=== PATIENT | female | born 1960 | race Caucasian/White ===

== ENCOUNTER 2020-03-11 07:27 | Day surgery (SDC) | payer BC ==
[~2020-03-11] VITALS: Ht 180.3 cm; Wt 132.4 kg
[~2020-03-11 07:27] MED LIST: ALBUTEROL2 MG OR; ALLOPURINOL100 MG OR; ALLOPURINOL100 MG PO; AMLODIPINE5 MG PO; ASA OR; ASPIRIN LOW DOS81 M2 PO; ASPIRIN325 MG PO; CATAPRES0.1 MG PO; CATAPRES0.3 MG OR; CIPRO500 MG OR; CIPROFLOXACN500 MG PO; CLONIDINE0.1 MG PO; CLONIDINE0.2 MG OR; CLONIDINE0.2 MG PO; DOXYCYCL HYC100 MG PO; FLEXERIL PO; FLONASE AL50 MCG/ACT; GENTAK0.3 % OS; HYDROCHLOROT25 MG PO; HYZAAR1 TA1 OR; IMDUR60 MG PO; ISOSORB MONO30 MG PO; KLOR-CON M2020 MEQ PO; LABETALOL100 MG OR; LABETALOL200 MG PO; LASIX20 MG OR; LEVEMIR SC; LEVEMIR1000 UNITS; LEVOTHROID125 MCG PO; LEVOTHYROXIN50 MCG PO; LORTAB 10 PO; LOSARTAN POT100 MG PO; LOSARTAN POT50 MG PO; LOSARTAN/HCT1 TA2 PO; MEDDOSEPAK OR; METFORMIN500 M2 PO; MICARDIS H80 MG/25 M OR; NASONEX50 MCG/AC; NITROGLYCER0.4 MG SL; NITROSTAT0.4 MG PO; NOVOLOG FLEXPEN SC; POT CHLORIDE20 ME3 PO; POTASSIUM25 MEQ OR; PRILOSEC40 MG PO; SIMVASTATIN40 MG PO; TORADOL OR; TRAMADOL HCL50 MG PO; TRESIBA FL200 UNIT/M SC; ULTRAM50 MG OR; VICTOZA18 MG/3 ML SC; VITAMIN C500 MG PO; VITAMIN D5000 UNI1 PO
[2020-03-11 09:50] VITALS: BP 132/64
== END 2020-03-11 10:20 | disposition home or self-care (01) | DRG 395 ==
LOC: ENDO 07:27 → ORM 07:30 → ENDO 10:20
PROVIDERS: ATTEND Surgery
PROC: 0DBM8ZX Excision of Descending Colon, Via Natural or Artificial Opening Endoscopic, Diagnostic (ICD-10-PCS; principal; 2020-03-11)
PROC: 0DBH8ZX Excision of Cecum, Via Natural or Artificial Opening Endoscopic, Diagnostic (ICD-10-PCS; 2020-03-11)
PROC: 3E0H8GC Introduction of Other Therapeutic Substance into Lower GI, Via Natural or Artificial Opening Endoscopic (ICD-10-PCS; 2020-03-11)
DX: D12.0 Benign neoplasm of cecum (principal); D12.4 Benign neoplasm of descending colon; K57.30 Diverticulosis of large intestine without perforation or abscess without bleeding; K64.8 Other hemorrhoids; I10 Essential (primary) hypertension; E11.9 Type 2 diabetes mellitus without complications; Z11.59 Encounter for screening for other viral diseases; Z95.1 Presence of aortocoronary bypass graft; Z79.4 Long term (current) use of insulin

== ENCOUNTER 2020-07-22 16:15 | Inpatient (IN) | payer BC ==
[~2020-07-22] VITALS: Ht 180.3 cm; Wt 131.0 kg
--- NOTE | 2020-07-22 16:15 | NUR ---
PT TO ROOM VIA WC FOR TRIAGE
[2020-07-22 17:00] LABS: HEMOGLOBIN 11.8 g/dl (12.0-16.0); IMMATURE GRANULOCYTES 0.3 % (0.0-5.0); MEAN CELL VOLUME 82.5 fL CALC (80.0-100.0); MEAN CORPUSCULAR HGB 27.8 pG CALC (26.0-32.0); MEAN CORPUSCULAR HGB CONC 33.7 g/dL CAL (32.0-36.0); NEUT# 2.5 thou/uL (2.00-7.15); RED BLOOD COUNT 4.24 mill/uL (4.20-5.60); RED CELL DISTRI WIDTH 14.9 % (11.5-15.5)
[2020-07-22 17:18] LABS: ALBUMIN 4.3 g/dL (3.2-5.0); ALKALINE PHOSPHATASE 77 u/l (38-126); ANION GAP 14 (6-22 (CALC)); BUN 21 mg/dL (8-23); BUN/CREATININE RATIO 21 (12-20 (CALC)); C-REACTIVE PROTEIN 6.7 mg/dL (0-0.9); CARBON DIOXIDE 27 mmol/l (22-30); CHLORIDE 100 mmol/l (95-108); GFR 56 ML/MIN (>=60 (CALC)); GFR FOR AFR.AMER. > 60 ML/MIN (>=60 (CALC)); POTASSIUM 3.3 mmol/l (3.5-5.1); SODIUM 137 mmol/l (137-146); TOTAL PROTEIN 6.8 g/dL (6.3-8.2)
[2020-07-22 17:19] LABS: SGOT/AST 48 u/l (9-36)
--- NOTE | 2020-07-22 17:56 | NUR ---
PT ASSISTED TO BEDSIDE COMMODE WITHOUT DISTRESS. PT IS WITHOUT ANY COMPLAINTS
--- NOTE | 2020-07-22 18:40 | NUR ---
PT ADMITS TO NOT TAKING HER BP MEDICATION THIS AFTERNOON. LABETOL IV GIVEN
--- NOTE | 2020-07-22 19:00 | NUR ---
RECEIVED REPORT FROM TALIA MIJARES. PT IS IN ER12.
[2020-07-22 19:21] VITALS: BP 180/75
[2020-07-22 20:21] VITALS: BP 175/76
--- NOTE | 2020-07-22 21:00 | NUR ---
CALLED YUDI TO HAVE MEDICATIONS VERIFIED. PT UP TO BSC BY HERSELF. NO SOB NOTED.
[2020-07-22 21:21] VITALS: BP 173/76
--- NOTE | 2020-07-22 23:00 | NUR ---
PT HAD BM.. NO SOB NOTED. B/P 173/76 SATS STABLE 95%
[2020-07-23] VITALS (9 sets, daily range): BP systolic 156–189; BP diastolic 66–77
--- NOTE | 2020-07-23 | NUR ---
PT SWITCHED TO HOSPITAL BED AND STATED SHE FELT WONDERFUL SINCE MOVED TO BED. SHOWED HER HOW TO USE BED CONTROLS. BP 172/77 TEMP 97.5 SAT 97 AT THIS TIME. NO SOB NOTED. LIGHTS OUT PER REQUEST. CALL SALDANA IN REACH. CELL PHONE PLUGGED INTO OPPOSITE SIDE OF ROOM FROM COMMODE SO PT WOULD NOT TRIP ON CORD.
--- NOTE | 2020-07-23 02:09 | NUR ---
PT RESTING QUIETLY. SAT 95%
--- NOTE | 2020-07-23 05:30 | NUR ---
PT WAS SNORING LOUDLY UPON ENTERING ROOM. WOKE EASILY. MORNING LABS DRAWN AND MEDICATED WITH SYNTHROID. APOLOGIZED FOR WAKING PT AND SHE STATED NOT TO WORRY SHE WILL FALL BACK TO SLEEP EASILY.
[2020-07-23 05:50] LABS: HEMATOCRIT 32.8 % (37.0-47.0); HEMOGLOBIN 11.2 g/dl (12.0-16.0); IMMATURE GRANULOCYTES 0.4 % (0.0-5.0); MEAN CELL VOLUME 82.2 fL CALC (80.0-100.0); MEAN CORPUSCULAR HGB 28.1 pG CALC (26.0-32.0); MEAN CORPUSCULAR HGB CONC 34.1 g/dL CAL (32.0-36.0); NEUT# 1.85 thou/uL (2.00-7.15); RED BLOOD COUNT 3.99 mill/uL (4.20-5.60); RED CELL DISTRI WIDTH 14.3 % (11.5-15.5)
[2020-07-23 06:10] LABS: ALBUMIN 3.9 g/dL (3.2-5.0); ALKALINE PHOSPHATASE 71 u/l (38-126); ANION GAP 12 (6-22 (CALC)); BILIRUBIN, TOTAL 0.7 mg/dL (0.0-1.4); BUN 22 mg/dL (8-23); BUN/CREATININE RATIO 31 (12-20 (CALC)); C-REACTIVE PROTEIN 6.5 mg/dL (0-0.9); CARBON DIOXIDE 28 mmol/l (22-30); CHLORIDE 101 mmol/l (95-108); CREATININE 0.7 mg/dL (0.5-1.0); GFR > 60 ML/MIN (>=60 (CALC)); GFR FOR AFR.AMER. > 60 ML/MIN (>=60 (CALC)); POTASSIUM 3.5 mmol/l (3.5-5.1); SGOT/AST 40 u/l (9-36); SODIUM 137 mmol/l (137-146); TOTAL PROTEIN 6.2 g/dL (6.3-8.2)
--- NOTE | 2020-07-23 07:00 | NUR ---
RECEIVED REPORT FROM TALIA HALE.
--- NOTE | 2020-07-23 07:15 | NUR ---
REPORT GIVEN TO TALIA GALLAGHER.
--- NOTE | 2020-07-23 09:05 | NUR ---
PT RESTING IN BED. CALL LIGHT WITHIN REACH, BED IN LOW POSITION. NO DISTRESS NOTED. VITALS STABLE ON MONITOR. NO COMPLAINTS AT THIS TIME.
--- NOTE | 2020-07-23 11:14 | NUR ---
PT SLEEPING. NO CHANGES FROM PREVIOUS NOTE.
--- NOTE | 2020-07-23 13:15 | NUR ---
PT UP TO BSC. CLEANED UP. VITALS REMAIN STABLE. BED IN LOW POSITION. DENIES ANY PAIN OR DYSPNEA. WILL CONTINUE TO MONITOR.
--- NOTE | 2020-07-23 15:18 | NUR ---
REPORT CALLED TO M/SJEANE RN. AT BEDSIDE IN ER, ADVISED HE IS NOT ABLE TO ACCOMPANY PT UPSTAIRS.
--- NOTE | 2020-07-23 15:40 | NUR ---
REPORT RECIEVED FROM TALIA GALLAGHER. PT TRANSPORTED TO [facility] ROOM 283 VIA BED ACCOMPAINED BY TALIA GALLAGHER AND TALIA ALLEN. INTRODUCED SELF TO PT AND DISCUSSED POC. PT IS A/O X3. ASSESSMENT AND VITALS COMPLETED. BP 189/75, HR 71 O2 97% ON 2L NC. PT IS NONDEPENDENT AT HOME. RESPIRATIONS ARE EVEN AND UNLABORED. HEART RHYTHM IS NORMAL WITH TELE IN PLACE, SR 71 PER ER MONITORING.BOWEL SOUNDS AARE ACTIVE IN ALL QUADRANTS, LAST REPORTED BM 07/23/2020. RADIAL AND PEDAL PULSES ARE STRONG WITH NORMAL CAPILLARY REFILL. #20G IN RAC FLUSHED. SITE APPEARS HEALTHY AND PATENT.SKIN IS WARM AND DRY WITH TRACE EDEMEA NOTED TO BLE. NO BREAKDOWN NOTED. PT DENIES OF ANY PAINS AT THIS TIME. ALLERGIES CONFIRMED WITH PT.PT NOTIFIED OF NEED FOR URINE SAMPLE. PT VERBALIZED UNDERSTANDING. ALLERGY BAND ALREADY APPLIED. ALL SAFETY PRECAUTIONS ARE IN PLACE WITH CALL LIGHT IN REACH. AIR/CONTACT PRECAUTIONS IN PLACE. WILL CONTINUE TO MONITOR
--- NOTE | 2020-07-23 16:40 | NUR ---
REASSESSMENT OF BP RESULTING IN 182/74, HR 71. PT REMAINS ASYMPTOMATIC. RESPIRATIONS ARE EVEN AND UNLABORED ON 2L NC. JAIN NOTIFED OF BP. ORDERS TO BE OBTAINED. ALL SAFETY PRECAUTIONS REMAINS IN PLACE WITH CALL LIGHT IN REACH.W ILL CONTINUE TO MONITOR
[2020-07-23 17:14] LABS: URINE BILIRUBIN - DIPSTICK NEGATIVE (NEGATIVE); URINE BLOOD DIPSTICK TRACE-INTACT (NEGATIVE); URINE COLOR YELLOW; URINE GLUCOSE - DIPSTICK 500 mg/dL (NEGATIVE); URINE KETONE NEGATIVE (NEGATIVE); URINE LEUK ESTERASE NEGATIVE (NEGATIVE); URINE NITRITE - DIPSTICK NEGATIVE (Negative); URINE PROTEIN - DIPSTICK 30 mg/dL (NEG-TRACE); URINE SPECIFIC GRAVITY 1.025; URINE UROBILINOGEN - DIPSTICK 0.2 E.U./dL (0.2)
[2020-07-23 17:15] LABS: URINE WBC 0-2 WBC/hpf (0-5)
[2020-07-23 17:16] LABS: URINE SQUAMOUS EPITHELIAL CELL FEW EPI/hpf (0-FEW)
--- NOTE | 2020-07-23 17:34 | NUR ---
APRESOLINE 10MG IV ADMINISTERED BY Maria D SHEIKH. PT TOELRATED WELL.WLL CONTINUE TO MONITOR
--- NOTE | 2020-07-23 18:43 | NUR ---
REASSESSMENT OF BP RESUTLING IN . ATTEMPTED TO CONTACT MARIA L JAIN. NO ANSWER. PT DENIES ANY PAIN OR DISCOMFORTS. WILL CONTINUE TO MONITOR
--- NOTE | 2020-07-23 20:00 | NUR ---
PHYSICAL ASSESMENT COMPLETE. PT CURRENTLY DENIES PAIN OR DISCOMFORT. SCHEDULED MEDICATIONS AND PRN MEDICATION ADMINISTERED, SEE E-MAR. PT DENIES ANY NEEDS AT THIS TIME. PT ON 2 LITERS OF OXYGEN AND SATURATION IS 93 %. PLAN OF CARE REVIEWED, PT DENIES QUESTIONS, VERBALIZES UNDERSTANDING. ITEMS WITHIN REACH, BED LOCKED IN LOW POSITION W/ BEDRAILS UP X2. CALL SALDANA WITHIN REACH, AGREES TO CALL PRN.
--- NOTE | 2020-07-23 20:15 | NUR ---
NOTIFIED PTS GLUCOSE WAS 483. NOTIFIED Dora LISA. ORDER FOR 10 UNITS OF HUMALOG FOR COVERAGE. STAT LAB TEST. RESULT 421.
--- NOTE | 2020-07-23 21:30 | NUR ---
REPEAT GLUCOSE WAS 412.
--- NOTE | 2020-07-24 00:03 | NUR ---
PT LAYING IN BED WITH EYES CLOSED, APPEARS TO BE SLEEPING, APPEARS COMFORTABLE AND IN NO DISTRESS. RESPIRATIONS REGULAR AND UNLABORED. ITEMS REMAIN WITHIN REACH, CALL SALDANA REMAINS WITHIN REACH. BED REMAINS LOCKED AND IN LOW POSITION WITH BEDRAILS UP X2. WILL CONTINUE TO MONITOR.
[2020-07-24 04:00] VITALS: BP 175/79
--- NOTE | 2020-07-24 04:03 | NUR ---
PT RESTING IN BED, NO SIGNS OF DISTRESS NOTED, RESP EVEN AND UNLABORED. PT VOICES NO NEEDS OR COMPLAINTS AT THIS TIME. CALL LIGHT IN REACH, CONTINUE TO MONITOR.
[2020-07-24 05:43] LABS: HEMATOCRIT 34.5 % (37.0-47.0); HEMOGLOBIN 11.5 g/dl (12.0-16.0); IMMATURE GRANULOCYTES 0.5 % (0.0-5.0); MEAN CELL VOLUME 82.5 fL CALC (80.0-100.0); MEAN CORPUSCULAR HGB 27.5 pG CALC (26.0-32.0); MEAN CORPUSCULAR HGB CONC 33.3 g/dL CAL (32.0-36.0); NEUT# 5.46 thou/uL (2.00-7.15); RED BLOOD COUNT 4.18 mill/uL (4.20-5.60); RED CELL DISTRI WIDTH 14.2 % (11.5-15.5)
[2020-07-24 06:02] LABS: ALKALINE PHOSPHATASE 68 u/l (38-126); ANION GAP 14 (6-22 (CALC)); BILIRUBIN, TOTAL 0.5 mg/dL (0.0-1.4); BUN 26 mg/dL (8-23); BUN/CREATININE RATIO 34 (12-20 (CALC)); CARBON DIOXIDE 25 mmol/l (22-30); CHLORIDE 104 mmol/l (95-108); CREATININE 0.8 mg/dL (0.5-1.0); GFR > 60 ML/MIN (>=60 (CALC)); GFR FOR AFR.AMER. > 60 ML/MIN (>=60 (CALC)); POTASSIUM 3.9 mmol/l (3.5-5.1); SGOT/AST 34 u/l (9-36); SODIUM 140 mmol/l (137-146); TOTAL PROTEIN 6.3 g/dL (6.3-8.2)
--- NOTE | 2020-07-24 08:00 | NUR ---
SHIFT CHANGE REPORT, PT AWAKE ALERT AND ORIENTED RESTING IN BED, C/O NECK ACHE @ 4/10 AND TYLENOL GIVEN, O2 @ 2L VIA NC IN PLACE, TELE MONITOR IN PLACE, NEEDS ADDRESSED, CALL SALDANA IN REACH.
[2020-07-24 09:20] VITALS: BP 166/76
[2020-07-24 11:01] VITALS: BP 176/67
[2020-07-24] MEDS ORDERED: DEXAMETHASON6 MG PO (11:27)
[2020-07-24] MEDS ORDERED: PANTOPRAZOLE SO40 M1 PO (11:27)
[2020-07-24] MEDS ORDERED: LEVAQUIN750 M1 PO (11:28)
[2020-07-24] MEDS ORDERED: OXY1 (11:29)
--- NOTE | 2020-07-24 12:00 | NUR ---
RESTING IN BED, C/O HAVING DIARRHEA. MEDICAL TEAM ROUNDED AND DISCUSSED PLAN OF CARE INCLUDING D/C PLANS, WALK TEST PERFORMED BUT PT COULD NOT TOLERATE O2 SATS DROPPED TO 88% SOON O2 WAS REMOVED. CM IS WORKING ON O2 TO D/C HOME WITH PT.
[2020-07-24 14:30] VITALS: BP 169/58
--- NOTE | 2020-07-24 16:00 | NUR ---
STILL AWAITING DELIVERY OF O2.
--- NOTE | 2020-07-24 18:30 | NUR ---
PT STATED SHE DOES NOT WANT TO GO HOME THIS LATE BUT WILL GO IN AM, DR FAGAN NOTIFIED, SAID IT WAK OK.
[2020-07-24 19:00] VITALS: BP 159/62
--- NOTE | 2020-07-24 19:30 | NUR ---
PT RESTING IN BED, NO SIGNS OF DISTRESS NOTED, RESP EVEN AND UNLABORED. PT ALERT AND ORIENTED X3, DISCUSSED POC, IV LEVOQUIN INFUSION COMPLETED, IV SL PT TOLERATED WELL. ASSESSMENT COMPLETED, CALL LIGHT IN REACH,CONTINUE TO MONITOR.
[2020-07-25] VITALS: BP 157/70
--- NOTE | 2020-07-25 | NUR ---
PT RESTING IN BED, EASILY AROUSED TO VERBAL STIMULI, PT VOICES NO NEEDS OR COMPLAINTS AT THIS TIME. CALL LIGHT IN REACH,CONTINUE TO MONITOR.
[2020-07-25 04:00] VITALS: BP 165/72
--- NOTE | 2020-07-25 04:25 | NUR ---
PT RESTING IN BED, NO SIGNS OF DISTRESS NOTED, RESP EVEN AND UNLABORED. PT C/O HEADACHE MEDICATED WITH TYLENOL. CALL LIGHT IN REACH,CONTINUE TO MONITOR.
[2020-07-25 05:47] LABS: HEMATOCRIT 34.1 % (37.0-47.0); HEMOGLOBIN 11.1 g/dl (12.0-16.0); IMMATURE GRANULOCYTES 0.7 % (0.0-5.0); MEAN CELL VOLUME 83.8 fL CALC (80.0-100.0); MEAN CORPUSCULAR HGB 27.3 pG CALC (26.0-32.0); MEAN CORPUSCULAR HGB CONC 32.6 g/dL CAL (32.0-36.0); NEUT# 7.23 thou/uL (2.00-7.15); RED BLOOD COUNT 4.07 mill/uL (4.20-5.60); RED CELL DISTRI WIDTH 14.5 % (11.5-15.5)
[2020-07-25 06:14] LABS: ALBUMIN 3.6 g/dL (3.2-5.0); ALKALINE PHOSPHATASE 69 u/l (38-126); ANION GAP 13 (6-22 (CALC)); BUN 25 mg/dL (8-23); BUN/CREATININE RATIO 34 (12-20 (CALC)); CARBON DIOXIDE 27 mmol/l (22-30); CHLORIDE 104 mmol/l (95-108); CREATININE 0.7 mg/dL (0.5-1.0); GFR > 60 ML/MIN (>=60 (CALC)); GFR FOR AFR.AMER. > 60 ML/MIN (>=60 (CALC)); POTASSIUM 3.6 mmol/l (3.5-5.1); SGOT/AST 32 u/l (9-36); SODIUM 140 mmol/l (137-146); TOTAL PROTEIN 5.9 g/dL (6.3-8.2)
[2020-07-25 06:29] LABS: BILIRUBIN, TOTAL 0.8 mg/dL (0.0-1.4); C-REACTIVE PROTEIN 13.1 mg/dL (0-0.9)
[2020-07-25 07:59] VITALS: BP 188/71
--- NOTE | 2020-07-25 08:18 | NUR ---
SHIFT CHANGE REPORT PT AWAKE ALERT AND ORIENTED RESTING IN BED, STATES SHE FEELS MUCH BETTER TODAY, NO C/O DISCOMFORT AT THIS TIME, O2 @ 2L VIA NC IN PLACE, ALL NEEDS ADDRESSED, CALL SALDANA IN REACH.
[2020-07-25 09:56] VITALS: BP 157/66
[2020-07-25 10:30] VITALS: BP 164/63
--- NOTE | 2020-07-25 11:26 | NUR ---
Discharge instructions given. Patient verbalizes understanding of same. Discharged in stable condition via Wheelchair to Home with spouse. All belongings sent with pt.
--- NOTE | 2020-07-25 12:59 | NUR ---
PT ALREADY D/C, SPOUSE CALLED FROM HOME STATING OXYGEN GAUGE SHOWING TANK NEEDS REFILLING; HOWEVER THE TANK WAS JUST DELIVERED COUPLE DAYS AGO AND HADNT BEEN USED HERE. VINICIO CONTACTED AND PROVIDED PHONE NUMBER FOR LENNIE, LENNIE CONTACTED AND INFORMED OF CONCERN AND STATED SOMEONE WILL BE OUT TO EVALUATE NEEDS. NURSE CONTACTED SPOUSE AND INFORMED OF PROCESS AND HE REPORTED REP CAME TO HOME AND ADDRESS PROBLEM.
--- NOTE | 2020-07-30 11:38 | NUR ---
eduar post discharge follow up call completed today, 07/30. Pt. states she is doing much better. She is still fatigued easily and using home oxygen, but is beginning to wean from oxygen. Pt. obtained medication prescribed at discharge and took without issue. Follow up appt. with PCP is scheduled today. Pt. expressed praise and gratitude for care received during hospitalization. No needs or questions at this time.
== END 2020-07-25 11:11 | disposition home or self-care (01) | DRG 177 ==
LOC: ED 16:15 → ED-I 17:55 → ED 18:33 → ED-I 18:34 → MS2 07-23 15:45 → UNDODEPER 07-23 18:34 → MS2 07-25 11:11
PROVIDERS: Family Medicine; Internal Medicine; Nurse Practitioner; ADMIT Internal Medicine; ATTEND Internal Medicine
DX: U07.1 COVID-19 (principal); J12.89 Other viral pneumonia; J96.00 Acute respiratory failure, unspecified whether with hypoxia or hypercapnia; I10 Essential (primary) hypertension; E11.9 Type 2 diabetes mellitus without complications; M10.9 Gout, unspecified; Z79.4 Long term (current) use of insulin; Z79.82 Long term (current) use of aspirin; Z79.899 Other long term (current) drug therapy; Z88.1 Allergy status to other antibiotic agents; Z88.0 Allergy status to penicillin; Z88.2 Allergy status to sulfonamides; Z95.1 Presence of aortocoronary bypass graft
CPT/HCPCS: J1650